=== PATIENT | female | born 1970 | race Caucasian/White ===

== ENCOUNTER 2019-11-20 08:13 | Emergency (ER) | payer OTHER ==
[2019-11-20 08:31] VITALS: RESP 16
[2019-11-20] MEDS ORDERED: ONDANSETRON 4 MG/2 ML VIAL IVP STA (09:03)
[2019-11-20] MEDS ORDERED: KETOROLAC 30 MG/ML 1 ML VIAL IVP STA (09:03)
[2019-11-20] MEDS ORDERED: SODIUM CHLORIDE 0.9% 1,000 ML IV STA ×2 (09:03)
--- NOTE | 2019-11-20 10:23 | ED ---
Abdominal Pain HPI - General Chief Complaint: Abdominal Pain Stated Complaint: Rt sided flank pain Time Seen by Provider: 11/20/19 08:48 Source: patient, RN notes reviewed, old records reviewed Mode of arrival: ambulatory Limitations: no limitations - History of Present Illness Initial Comments: 49-year-old female presents today for sudden onset of right sided flank pain today. She reports the pain was severe and she was at school. She reports that t he pain subsided at this time and is concerned of what that pain could have been. She denies fevers or chills. PAtient denies other complaints. She denies nausea or vomiting now. She reports no history of kidney stones. - Related Data Home Medications Medication Instructions Recorded Confirmed Amino Acids 700 mg PO DAILY 11/20/19 11/20/19 Previous Rx's Medication Instructions Recorded Ketorolac [Toradol] 10 mg PO QID #12 tab 11/20/19 Ondansetron [Zofran ODT] 4 mg PO Q12HR #12 tab 11/20/19 Tamsulosin [Flomax] 0.4 mg PO DAILY #7 cap 11/20/19 Allergies Allergy/AdvReac Type Severity Reaction Status Date / Time No Known Allergies Allergy Verified 11/20/19 11:09 Review of Systems ROS Statement: Those systems with pertinent positive or pertinent negative responses have been documented in the HPI. ROS Other: All systems not noted in ROS Statement are negative. Past Medical History Past Medical History: No Reported History History of Any Multi-Drug Resistant Organisms: None Reported Past Surgical History: Appendectomy, Hysterectomy Past Psychological History: Depression Smoking Status: Never smoker Past Alcohol Use History: None Reported Past Drug Use History: None Reported General Exam - General Exam Comments Initial Comments: 49-year-old female. Alert and oriented. No distress. Limitations: no limitations General appearance: alert, in no apparent distress Head exam: Present: atraumatic, normocephalic, normal inspection Eye exam: Present: normal appearance, PERRL, EOMI. Absent: scleral icterus, conjunctival injection, periorbital swelling ENT exam: Present: normal exam, mucous membranes moist Neck exam: Present: normal inspection. Absent: tenderness, meningismus, lymphadenopathy Respiratory exam: Present: normal lung sounds bilaterally. Absent: respiratory distress, wheezes, rales, rhonchi, stridor Cardiovascular Exam: Present: regular rate, normal rhythm, normal heart sounds. Absent: systolic murmur, diastolic murmur, rubs, gallop, clicks GI/Abdominal exam: Present: soft, normal bowel sounds. Absent: distended, tenderness, guarding, rebound, rigid Extremities exam: Present: normal inspection, full ROM, normal capillary refill. Absent: tenderness, pedal edema, joint swelling, calf tenderness Back exam: Present: normal inspection Neurological exam: Present: alert, oriented X3, CN II-XII intact Course Vital Signs 11/20/19 11/20/19 08:28 11:47 Temperature 98 F 97.6 F Pulse Rate 80 82 Respiratory 16 16 Rate Blood Pressure 119/70 137/86 O2 Sat by Pulse 99 98 Oximetry Medical Decision Making - Medical Decision Making Patient is a 49 year old female with R flank pain, sudden onset today. She arriv ed with no further pain and feels well. Discussed concern for kidney stone. UA shows RBC. Labs are unremarkable. KUB shows small punctacte calculus over R ureter or gonadal vein. Discussed that is likely moving stone. she wanted no pain meds in ED> Patient offered CT scan. Patient states she prefers to go home and will have treatment for kidney stone. Discussed return parameters including fever, nausea vomiting or worse pain. - Lab Data Result diagrams: 11/20/19 10:05 11/20/19 10:05 Lab Results 11/20/19 11/20/19 11/20/19 Range/Units 10:05 10:05 10:05 WBC 8.5 (3.8-10.6) k/uL RBC 5.06 (3.80-5.40) m/uL Hgb 14.2 (11.4-16.0) gm/dL Hct 43.0 (34.0-46.0) % MCV 85.0 (80.0-100.0) fL MCH 28.1 (25.0-35.0) pg MCHC 33.0 (31.0-37.0) g/dL RDW 12.6 (11.5-15.5) % Plt Count 281 (150-450) k/uL Neutrophils % 70 % Lymphocytes % 22 % Monocytes % 5 % Eosinophils % 1 % Basophils % 1 % Neutrophils # 6.0 (1.3-7.7) k/uL Lymphocytes # 1.8 (1.0-4.8) k/uL Monocytes # 0.4 (0-1.0) k/uL Eosinophils # 0.1 (0-0.7) k/uL Basophils # 0.1 (0-0.2) k/uL Sodium 139 (137-145) mmol/L Potassium 4.4 (3.5-5.1) mmol/L Chloride 106 (98-107) mmol/L Carbon Dioxide 23 (22-30) mmol/L Anion Gap 10 mmol/L BUN 14 (7-17) mg/dL Creatinine 0.67 (0.52-1.04) mg/dL Est GFR (CKD-EPI)AfAm >90 (>60 ml/min/1.73 sqM) Est GFR (CKD-EPI)NonAf >90 (>60 ml/min/1.73 sqM) Glucose 113 H (74-99) mg/dL Calcium 9.6 (8.4-10.2) mg/dL Total Bilirubin 0.7 (0.2-1.3) mg/dL AST 36 (14-36) U/L ALT 40 H (4-34) U/L Alkaline Phosphatase 84 (38-126) U/L Total Protein 7.8 (6.3-8.2) g/dL Albumin 4.8 (3.5-5.0) g/dL Amylase 71 (30-110) U/L Lipase 46 (23-300) U/L Urine Color Yellow Urine Appearance Clear (Clear) Urine pH 6.5 (5.0-8.0) Ur Specific [place] 1.019 (1.001-1.035) Urine Protein Negative (Negative) Urine Glucose (UA) Negative (Negative) Urine Ketones Negative (Negative) Urine Blood Small H (Negative) Urine Nitrite Negative (Negative) Urine Bilirubin Negative (Negative) Urine Urobilinogen <2.0 (<2.0) mg/dL Ur Leukocyte Esterase Negative (Negative) Urine RBC 9 H (0-5) /hpf Urine WBC 2 (0-5) /hpf Ur Squamous Epith Cells 1 (0-4) /hpf Urine Mucus Rare H (None) /hpf 11/20/19 10:33 EKG shows sinus rhythm normal EKG. Ventricular rate 60 bpm. Was 164 ms. QRS ration is 88 ms. QT QTc is 408/433 ms. - Radiology Data Radiology results: report reviewed There is a punctuate calcification overlying the R L4 transverse process could be located within the right ureter or right gonadal vein. Additional punctate calculus overlies the left superior pole of the kidney. Disposition Clinical Impression: Right flank pain, Ureteral stone Disposition: HOME SELF-CARE Condition: Good Instructions (If sedation given, give patient instructions): Kidney Stones (ED) Additional Instructions: Patient and advised to take the meds as prescribed. Following up with primary care physician. Return to emergency department if any alarming signs or symptoms occur. Prescriptions: Tamsulosin [Flomax] 0.4 mg PO DAILY #7 cap Ketorolac [Toradol] 10 mg PO QID #12 tab Ondansetron [Zofran ODT] 4 mg PO Q12HR #12 tab Is patient prescribed a controlled substance at d/c from ED?: No Referrals: Eusebio Llamas MD [Primary Care Provider] - 1-2 days Time of Disposition: 11:29
--- NOTE | 2019-11-20 10:51 | XR ---
EXAMINATION TYPE: XR KUB DATE OF EXAM: 11/20/2019 10:40 AM CLINICAL HISTORY: Right posterior flank pain TECHNIQUE: Single supine KUB image of the abdomen is obtained. COMPARISON: None. FINDINGS: Punctate calculus is seen overlying the transverse process of L4, possibly ureteral calculu s on the right. Punctate calculus overlies the superior left renal shadow. Lung bases are well aerate d. Levoscoliosis of the lumbar spine. Mild degree colonic fecal stasis. Phleboliths within the left l ow hemipelvis. No dilated large or small bowel. IMPRESSION: Punctate calcification overlying the right L4 transverse process could be located within the right ureter or right gonadal vein. Additional punctate calculus overlies the left superior pole the kidney.
[2019-11-20 10:54] LABS: ALT 40 U/L (4-34); AST 36 U/L (14-36); African American GFR (CKD) >90 (>60 ml/min/1.73 sqM); Albumin 4.8 g/dL (3.5-5.0); Alkaline Phosphatase 84 U/L (38-126); Amylase 71 U/L (30-110); Anion Gap 10 mmol/L; Blood Urea Nitrogen 14 mg/dL (7-17); Calcium 9.6 mg/dL (8.4-10.2); Carbon Dioxide 23 mmol/L (22-30); Chloride 106 mmol/L (98-107); Glucose 113 mg/dL (74-99); Non-African American GFR(CKD) >90 (>60 ml/min/1.73 sqM); Potassium 4.4 mmol/L (3.5-5.1); Sodium 139 mmol/L (137-145); Total Bilirubin 0.7 mg/dL (0.2-1.3); Total Protein 7.8 g/dL (6.3-8.2)
[2019-11-20 10:55] LABS: Basophils # (A) 0.1 k/uL (0-0.2); Basophils % (A) 1 %; Eosinophils # (A) 0.1 k/uL (0-0.7); Eosinophils % (A) 1 %; HGB 14.2 gm/dL (11.4-16.0); Lymphocytes # (A) 1.8 k/uL (1.0-4.8); Lymphocytes % (A) 22 %; MCH 28.1 pg (25.0-35.0); Mean Platelet Volume 8.6; Monocytes # (A) 0.4 k/uL (0-1.0); Monocytes % (A) 5 %; Neutrophils % (A) 70 %; Platelet Count 281 k/uL (150-450); RBC 5.06 m/uL (3.80-5.40); RDW 12.6 % (11.5-15.5); WBC 8.5 k/uL (3.8-10.6)
[2019-11-20 11:04] LABS: Appearance,Urine Clear (Clear); Bilirubin,Urine Negative (Negative); Blood,Urine Small (Negative); Color,Urine Yellow; Glucose,Urine (UA) Negative (Negative); Ketones,Urine Negative (Negative); Leukocyte Esterase,Urine Negative (Negative); Mucus,Urine Rare /hpf; Nitrite,Urine Negative (Negative); PH, Urine 6.5 (5.0-8.0); Protein,Urine Negative (Negative); RBC,Urine 9 /hpf (0-5); Specific Gravity,Urine 1.019 (1.001-1.035); Squamous Epithelial Cell,Urine 1 /hpf (0-4); Urobilinogen,Urine <2.0 mg/dL (<2.0); WBC,Urine 2 /hpf (0-5)
[2019-11-20 11:58] VITALS: BP 137/86; PULSE 82; TEMP 97.6
== END 2019-11-20 11:58 | disposition home or self-care (01) ==
LOC: EC 08:13
DX: N20.1 Calculus of ureter (principal)
CPT/HCPCS: 36415; 74018; 80053; 81001; 82150; 83690; 85025; 93005; 99284